=== PATIENT | male | born 1945 | race Caucasian/White ===

== ENCOUNTER 2016-10-19 09:07 | Outpatient (CLI) | payer OTHER, MEDICARE ==
--- NOTE | 2016-10-19 11:15 | DIAGNOSTIC IMAGING REPORT ---
PROCEDURE: CT ABDOMEN/PELVIS W/O CONTRAST INDICATION: HISTORY OF KIDNEY STONES, left-sided pain TECHNIQUE: Axial CT images were obtained through the abdomen and pelvis without IV contrast. Coronal and sagittal reformations were created. COMPARISON: 06/22/2016 FINDINGS: Clear lung bases. Normal size heart. No hiatal hernia. Post cholecystectomy. Chronic, small amount of biliary air anteriorly in the right and left lobe of the liver. The unenhanced appearance of the liver, adrenal glands, kidneys, pancreas and spleen is normal. Ectatic abdominal aorta with heavy calcification. Normal-caliber ureters and inferior vena cava. Multiple nonobstructing intrarenal calculi bilaterally, decreased in number in the right kidney compared to the prior study. The largest in the right kidney is in the lower pole and measures about 5 mm. Multiple nonobstructing calculi of the left kidney are stable in size and number. The largest is about 5-6 mm. The stomach, small bowel loops, and mesentery are normal. Occasional diverticula in the transverse and descending colon. Normal appendix. Diffusely enlarged, heterogeneous prostate gland. Interval resolution of right UVJ stone. Distal ureters are normal without calculi. Incompletely filled urinary bladder demonstrates a diffusely thickened wall, compression by the enlarged prostate gland, but no evidence of residual high density material internally. Moderate calcific atherosclerosis. Extensive sigmoid diverticulosis. Trace tanner-sigmoid inflammatory changes. Multilevel disc endplate degeneration in the lower thoracic and lumbar spine with spondylolisthesis secondary to severe facet disease at multiple levels. Surgical changes of hemilaminectomy at the L3-4 level. IMPRESSION: 1. Interval resolution of right UVJ calculus. 2. Numerous nonobstructing intrarenal calculi bilaterally as described. No significant progression. 3. Interval resolution of bladder hemorrhage. 4. Prostatomegaly. 5. Disc, endplate, and facet joint degeneration throughout the spine, chronic. 6. Extensive sigmoid diverticulosis with trace tanner sigmoid inflammation. Correlate clinically with any lower abdominal symptoms to exclude acute disease. 7. Atherosclerosis. 8. Chronic pneumobilia, likely secondary to sphincterotomy All CT scans at this facility use dose modulation, iterative reconstruction, and/or weight-based dosing when appropriate to reduce radiation dose to as low as reasonably achievable.
== END 2016-10-19 23:00 ==
LOC: CT SRH 09:07
DX: N20.0 Calculus of kidney (principal); N40.0 Benign prostatic hyperplasia without lower urinary tract symptoms; Z87.442 Personal history of urinary calculi